=== PATIENT | female | born 1965 | race Caucasian/White ===

== ENCOUNTER 2018-12-16 14:30 | Emergency (ER) | payer OTHER ==
[2018-12-16 15:43] VITALS: BMI 17.7
[2018-12-16] MEDS ORDERED: METOCLOPRAMIDE HCL INJECTION 10 MG/2 ML VIAL IVPUSH ONE (15:44)
[2018-12-16] MEDS ORDERED: SODIUM CHLORIDE 0.9% 1000 ML INFUS.BAG IV ONE (15:44)
[2018-12-16] MEDS ORDERED: ACETAMINOPHEN 1000 MG/100 ML VIAL (NON FORMULARY) IVPB ONE (15:44)
--- NOTE | 2018-12-16 15:46 | PDOC ---
History of Present Illness - General Chief Complaint: Pain Stated Complaint: ABDOMINAL PAIN Time Seen by Provider: 12/16/18 15:24 - History of Present Illness Initial Comments: 12/16/18 16:22 53yo female presents c/o a week hx of headache and lower abd pain. Pt states both started at the same time. Pt states sunday a week ago she was seen in the ED for eval of dizziness - dx with BPPV. States she was told "everything else was normal". Pt states all week she has felt a maier and abd pain. States she tried to eat healthy- carrot juice, fruit juice, baked chicken with vegetables. Pt denies n/v/d assoc with the maier or the abd pain. Pt denies urgency of urination. Does c/o freq and dysuria. Pt denies f/c. No cp/sob. No cough. No sore throat. Pt denies taking any meds at home for either the abd pain or the maier. Pt states she did trip over her foot a year ago and hit her head. Pt states she was seen in the ED twice after the fall for maier and L facial pain - told her CT head was negative x 2. States she has had maier since. PMhx: vertigo PShx: jeff Allergies: NKDA Meds: denies Soc: no etoh, no smoking, no drugs 12/16/18 17:37 Past History - Past Medical History Allergies/Adverse Reactions: Allergies Allergy/AdvReac Type Severity Reaction Status Date / Time No Known Allergies Allergy Verified 12/16/18 15:23 Home Medications: Ambulatory Orders Bisacodyl [Dulcolax] 5 mg PO DAILY PRN #10 tablet. 12/16/18 Meclizine HCl [Antivert -] 25 mg PO BID PRN #10 tablet 12/16/18 COPD: No Other medical history: PT DENIES - Suicide/Smoking/Psychosocial Hx Smoking History: Never smoked Hx Alcohol Use: No Drug/Substance Use Hx: No Review of Systems - Review of Systems Able to Perform ROS?: Yes Is the patient limited [place]an proficient: No Constitutional: No: Chills, Fever HEENTM: No: Nose Pain, Nose Congestion, Throat Pain Respiratory: No: Cough, Shortness of Breath Cardiac (ROS): No: Chest Pain, Lightheadedness, Palpitations ABD/GI: Yes: Other (abdominal pain). No: Diarrhea, Nausea, Vomiting : Yes: Burning, Dysuria, Frequency. No: Discharge, Urgency Musculoskeletal: No: Back Pain Integumentary: No: Rash Neurological: Yes: Headache. No: Numbness, Paresthesia, Seizure, Tremors, Weakness, Unsteady Gait, Ataxia All Other Systems: Reviewed and Negative *Physical Exam - Vital Signs Last Vital Signs Temp Pulse Resp BP Pulse Ox 18 0/0 L 12/16/18 14:32 12/16/18 14:32 - Physical Exam General Appearance: Yes: Nourished, Appropriately Dressed. No: Apparent Distress HEENT: positive: EOMI, UMESH, Normal ENT Inspection, Normal Voice Neck: positive: Trachea midline, Normal Thyroid, Supple. negative: Rigid, Tender lateral, Tender midline Respiratory/Chest: positive: Lungs Clear, Normal Breath Sounds. negative: Respiratory Distress Cardiovascular: positive: Regular Rhythm, Regular Rate, S1, S2. negative: Edema Gastrointestinal/Abdominal: positive: Normal Bowel Sounds, Tender (suprapubic), Soft, Tenderness (suprapubic). negative: Guarding, Rebound Musculoskeletal: positive: Normal Inspection. negative: CVA Tenderness, Vertebral Tenderness Extremity: positive: Normal Capillary Refill, Normal Inspection, Normal Range of Motion, Other (ambulatory in the ED with a steady gait) Integumentary: positive: Normal Color, Dry, Warm. negative: Rash Neurologic: positive: rn transfer II-XII NML intact, Fully Oriented, Alert, Normal Mood/ Affect, Normal Response, Motor Strength 12/15 ED Treatment Course - LABORATORY CBC & Chemistry Diagram: 12/16/18 15:57 12/16/18 15:57 Medical Decision Making - Medical Decision Making 12/16/18 16:27 a/p: 53yo female with a week of maier and lower abd pain -suspect uti given dysuria and suprapubic ttp -pt with maier x 1 week, neuro intact, hx of head injury in the past -will send labs, ua, ucx -upreg negative -will give reglan, tylenol, ivf hydration -will monitor and reassess 12/16/18 17:17 ua negative labs nonacute 12/16/18 17:36 no acute findings on labs pt states maier improved abd pain improved still with mild epigastric ttp hx of cholecystectomy in the past will give gi cocktail 12/16/18 18:40 pt states feeling better sister at the bedside has not follow up with ent or neuro for head injury and vertigo from a long time ago-requesting referrals will give meclizine for vertigo rx will give dulcolax for constipation stable for dc to home answered all questions *DC/Admit/Observation/Transfer Diagnosis at time of Disposition: Headache, Dizziness, Constipation - Discharge Dispostion Disposition: HOME Condition at time of disposition: Stable Decision to Admit order: No - Prescriptions Prescriptions: Bisacodyl [Dulcolax] 5 mg PO DAILY PRN #10 tablet. PRN Reason: Constipation Meclizine HCl [Antivert -] 25 mg PO BID PRN #10 tablet PRN Reason: Vertigo - Referrals Referrals: Fish Rosario MD [Staff Physician] - Shalini Angel MD [Staff Physician] - - Patient Instructions Printed Discharge Instructions: DI for Vertigo, DI for Headache, DI for Constipation Additional Instructions: Please drink plenty of water and eat plenty of fiber. Please take all medications as prescribed. Please make an appointment to see the neurologist and the ENT specialist. Please keep your appointment with your PMD tomorrow. Please return to the ED with any further concerns or complaints. - Post Discharge Activity
[2018-12-16 15:58] VITALS: TEMP 98.6
[2018-12-16] MEDS ORDERED: ACETAMINOPHEN INJECTION 100 ML IVPB ONE (16:18)
[2018-12-16] MEDS ORDERED: METOCLOPRAMIDE HCL INJECTION 10 MG/2 ML VIAL ONE (16:18)
[2018-12-16 16:29] LABS: BASO % 1.5 % (0-2.0); EOS % 0.9 % (0-4.5); HEMATOCRIT 38.5 % (32.4-45.2); HEMOGLOBIN 13.1 GM/dl (10.7-15.3); LYMPH % 29.4 % (8-40); MCH 30.5 pg (25.7-33.7); MEAN CELL VOLUME 89.8 fl (80-96); MEAN PLT VOLUME 8.4 fl (7.5-11.1); MONO % 9.6 % (3.8-10.2); NEUT % 58.6 % (42.8-82.8); PLATELET COUNT 333 K/MM3 (134-434); RBC 4.29 M/mm3 (3.60-5.2); RDW 12.6 % (11.6-15.6); WHITE BLOOD COUNT 7.7 K/mm3 (4.0-10.8)
[2018-12-16 16:50] LABS: ALBUMIN 4.6 g/dl (3.4-5.0); ALK PHOS 79 U/L (45-117); ANION GAP 15 MMOL/L (8-16); BILIRUBIN,TOTAL 0.5 mg/dl (0.2-1); BLOOD UREA NITROGEN 9 mg/dl (7-18); CALCIUM 9.7 mg/dl (8.5-10); CHLORIDE 100 mmol/L (98-107); CO2 21 mmol/L (21-32); GLUCOSE,RANDOM 114 mg/dl (74-106); MAGNESIUM 2.2 mg/dL (1.8-2.4); POTASSIUM 4.2 mmol/L (3.5-5.1); SGOT/AST 42 U/L (15-37); SGPT/ALT 27 U/L (13-61); SODIUM 136 mmol/L (136-145); TOT PROT 7.5 g/dl (6.4-8.2)
[2018-12-16 16:51] LABS: CREATININE < 0.6 mg/dl (0.55-1.3)
[2018-12-16] MEDS ORDERED: LIDOCAINE VISCOUS 2% ORAL/TOP 20 ML UNIT-DOSE CUP MM ONE (17:36)
[2018-12-16] MEDS ORDERED: MAG HYDROX/AL HYDROX/SIMETH 30 ML UNIT-DOSE CUP PO ONE (17:36)
[2018-12-16] MEDS ORDERED: KETOROLAC TROMETHAMINE 15 MG/ML VIAL IVPUSH ONE (17:36)
[2018-12-16] MEDS ORDERED: KETOROLAC TROMETHAMINE 15 MG/ML VIAL ONE (17:40)
[2018-12-16] MEDS ORDERED: MAG HYDROX/AL HYDROX/SIMETH 30 ML UNIT-DOSE CUP ONE (17:40)
[2018-12-16] MEDS ORDERED: LIDOCAINE VISCOUS 2% ORAL/TOP 20 ML UNIT-DOSE CUP ONE (17:41)
[2018-12-16 18:28] LABS: LIPASE 340 U/L (73-393)
[2018-12-16 18:59] VITALS: BP 126/86; PULSE 79
== END 2018-12-16 18:58 | disposition home or self-care (01) ==
LOC: FER 14:30
PROC: 3E0333Z Introduction of Anti-inflammatory into Peripheral Vein, Percutaneous Approach (ICD-10-PCS; principal; 2018-12-16)
PROC: 3E033NZ Introduction of Analgesics, Hypnotics, Sedatives into Peripheral Vein, Percutaneous Approach (ICD-10-PCS; 2018-12-16)
PROC: 3E0337Z Introduction of Electrolytic and Water Balance Substance into Peripheral Vein, Percutaneous Approach (ICD-10-PCS; 2018-12-16)
PROC: 3E033GC Introduction of Other Therapeutic Substance into Peripheral Vein, Percutaneous Approach (ICD-10-PCS; 2018-12-16)
DX: R51 Headache (principal); R42 Dizziness and giddiness; K59.00 Constipation, unspecified
CPT/HCPCS: 36415; 80053; 81003; 81025; 83690; 83735; 85025; 85730; 87086; 99283-25; J0131; J7030